=== PATIENT | female | born 1985 | race Caucasian/White ===

== ENCOUNTER 2019-05-21 13:46 | Outpatient (CLI) | payer OTHER, SELFPAY ==
--- NOTE | 2019-05-21 13:55 | US_ITS ---
WS: [id number] ULTRASOUND RENAL TECHNIQUE: Ultrasound examination of both kidneys. CLINICAL INFORMATION: BICORNATE UTERUS COMPARISON: None. FINDINGS: RIGHT: Right kidney is normal in size and appearance. Echogenicity: Normal. Cortical thickness: 1.5 cm; Normal. Hydronephrosis: None. Perinephric fluid: None. Right kidney measures: 10.2 cm x 4.3 cm x 4.4 cm. LEFT: Left kidney is normal in size and appearance. Echogenicity: Normal. Cortical thickness: 1.8 cm; Normal. Hydronephrosis: None. Perinephric fluid: None. Left kidney measures: 9.0 cm x 4.8 cm x 5.8 cm. Normal visualized aorta. Normal bladder. Normal renal ultrasound NOTE: Report was unsigned for reason: Ordering provider was edited. Original Signature date and time was: 05/21/19 1534 MTD US/US renal BI* [id number] IMPRESSION:
--- NOTE | 2019-05-21 15:14 | MR_ITS ---
WS: [id number] MRI PELVIS with and without CONTRAST. COMPARISON: None Multiplanar, multisequence imaging is performed with and without contrast. Sagittal and axial T1 fat sat sequences post-ProHance 13 cc IV. History: Bicornuate uterus. Infertility. Blocked RIGHT fallopian tube. 2 endometrial cavities are identified by a septum which is in the midline. The overall fund al contour is nearly flat with mild concavity less than 1 cm in depth. Intercornual distance of 3.5 c m. The angle between the endometrial cavities is approximately 75 degrees. The septum and proximal to the external cervical os. RIGHT endometrial cavity measures 1.4 cm and the LEFT 1.2 cm. No soft tissue masses or evidence for a denomyosis. Hydrosalpinx is not identified. Uterus is slightly retroverted. Multiple bilateral ovarian follicles. Largest follicle is 9.7 mm involving the LEFT ovary. There is n o free fluid. No enhancing soft tissue masses. MR/MR pelvis wo/w con [id number] IMPRESSION: 1. Partial septate uterus. Uterine fundal contour suggests this is a septate u terus and not bicornuate uterus. 2. Numerous small bilateral ovarian follicles. Largest measures 9.7 mm on the LEFT. 3. No free fluid. 4. No enhancing mass.
== END 2019-05-21 13:47 | disposition home or self-care (01) ==
LOC: RAD 13:51
PROVIDERS: PCP Internal Medicine Medical Oncology; Visit Provider Obstetrics & Gynecology Gynecology
DX: Q51.3 Bicornate uterus (principal)
CPT/HCPCS: 72197; 76770; A9579

== ENCOUNTER 2019-06-12 09:52 | Outpatient (CLI) | payer OTHER, SELFPAY | END 2019-06-12 09:53 | disposition home or self-care (01) | LOC: LAB 09:53 | PROVIDERS: Visit Provider Physician Assistant | DX: Z34.90 Encounter for supervision of normal pregnancy, unspecified, unspecified trimester (principal) | CPT/HCPCS: 36415; 84702 ==

== ENCOUNTER 2019-06-14 07:45 | Outpatient (CLI) | payer OTHER, SELFPAY | END 2019-06-14 07:46 | disposition home or self-care (01) | LOC: LAB 07:47 | PROVIDERS: Visit Provider Physician Assistant | DX: Z32.00 Encounter for pregnancy test, result unknown (principal) | CPT/HCPCS: 84702 ==

== ENCOUNTER 2019-07-03 10:58 | Outpatient (CLI) | payer OTHER, SELFPAY ==
--- NOTE | 2019-07-03 11:03 | US_ITS ---
WS: [id number] US OB transvaginal [id number] REASON FOR EXAM: DATING/EARLY FINDINGS: [place]-rump length of the fetus measures 0.89 cm equaling 6 weeks 6 days gestation. The otic sac measures 0.23 cm Right ovary measured 2.95 x 1.91 x 1.49 cm. The left ovary measures 3.73 x 2.31 x 1.94 cm. heart rate is 1 53 bpm. US/US OB transvaginal [id number] IMPRESSION: Interuterine at 6 weeks 6 days gestation. The fetus shows good motion and good heart tone.
== END 2019-07-03 10:59 | disposition home or self-care (01) ==
PROVIDERS: Visit Provider Nurse Practitioner Women's Health
DX: Z32.01 Encounter for pregnancy test, result positive (principal)
CPT/HCPCS: 76817

== ENCOUNTER → 2019-07-21 11:14 | Outpatient (BNVA) | payer OTHER, SELFPAY | PROVIDERS: Visit Provider Nurse Practitioner Women's Health | DX: Z01.89 Encounter for other specified special examinations (principal) | CPT/HCPCS: 84315 ==

== ENCOUNTER → 2019-07-28 10:01 | Outpatient (BNVA) | payer OTHER, SELFPAY | PROVIDERS: Visit Provider Obstetrics & Gynecology | DX: Z34.01 Encounter for supervision of normal first pregnancy, first trimester (principal) | CPT/HCPCS: 80053; 80306; 84315; 85027; 86592; 86762; 86803; 86850; 86900; 87340; 87806 ==

== ENCOUNTER → 2019-08-12 08:08 | Outpatient (BNVA) | payer OTHER, SELFPAY | PROVIDERS: Visit Provider Obstetrics & Gynecology | DX: O09.91 Supervision of high risk pregnancy, unspecified, first trimester (principal) | CPT/HCPCS: 84315; 87491; 87591 ==

== ENCOUNTER → 2019-08-31 09:18 | Outpatient (BNVA) | payer OTHER, SELFPAY | PROVIDERS: Visit Provider Obstetrics & Gynecology | DX: Z34.02 Encounter for supervision of normal first pregnancy, second trimester (principal); Z3A.15 15 weeks gestation of pregnancy | CPT/HCPCS: 76815 ==

== ENCOUNTER → 2019-12-01 09:34 | Outpatient (BNVA) | payer OTHER, SELFPAY | PROVIDERS: Visit Provider Obstetrics & Gynecology | DX: O09.899 Supervision of other high risk pregnancies, unspecified trimester (principal) | CPT/HCPCS: 82950; 84315; 85027 ==

== ENCOUNTER → 2019-12-07 09:00 | Outpatient (BNVA) | payer OTHER, SELFPAY | PROVIDERS: Visit Provider Obstetrics & Gynecology | DX: R73.09 Other abnormal glucose (principal) | CPT/HCPCS: 82951; 82952 ==

== ENCOUNTER → 2020-01-26 09:30 | Outpatient (BNVA) | payer OTHER, SELFPAY | PROVIDERS: Visit Provider Obstetrics & Gynecology | DX: O09.899 Supervision of other high risk pregnancies, unspecified trimester (principal); Z3A.00 Weeks of gestation of pregnancy not specified | CPT/HCPCS: 84315; 87081 ==

== ENCOUNTER → 2020-01-28 13:05 | Outpatient (BNVA) | payer OTHER, SELFPAY | PROVIDERS: Visit Provider Internal Medicine | DX: Z11.59 Encounter for screening for other viral diseases (principal) | CPT/HCPCS: 87635 ==

== ENCOUNTER 2020-02-02 05:30 | Outpatient (CLI) | payer OTHER, SELFPAY ==
[2020-02-02] VITALS (37 sets, daily range): BP systolic 96–139; BP diastolic 50–85; PULSE 67–105; O2SAT 97–100; BMI 26.8
[2020-02-02 06:11] LABS: Basophils % 0.4 %; Eosinophils % 0.4 %; Hematocrit 36.1 % (37.0-47.0); Hemoglobin 11.7 g/dL (11.5-15.3); Lymphocytes % 19.1 %; Mean Corpuscular HGB Conc 32.4 g/dL (30.0-36.0); Mean Corpuscular Hemoglobin 29.8 pg (28.0-34.0); Mean Corpuscular Volume 91.9 fL (81-99); Mean Platelet Volume 13.5 fL (7.4-10.4); Monocytes # 1.2 10^3/uL (0.2-0.9); Monocytes % 11.7 %; Nucleated Red Blood Cells % 0 %; Platelet Count 156 10^3/cmm (130-400); Red Blood Count 3.93 10^6/uL (4.1-5.3); Red Cell Distribution Width 13.1 % (12.1-15.1); White Blood Count 10.3 10^3/uL (4.0-10.0)
[2020-02-02] MEDS: terbutaline 1 mg/mL INJ 0.25 MG SUBCUT (07:03)
--- NOTE | 2020-02-02 07:09 | W.PM.OPSUD ---
Surgery/Procedure H&P Update DATE OF PROCEDURE: February 02, 2020 DATE H&P PERFORMED: 01/26/20 H&P UPDATE INFORMATION: I have reviewed H&P completed within last 30 days, I have examined patient prior to procedure, No changes to prior documentation and H&P is in [facility] EMR on date indicated PREOP DIAGNOSIS: Breech presentation PLANNED PROCEDURE: ECV possible CD
--- NOTE | 2020-02-02 07:40 | PM.ACPR ---
Procedure/Consent Procedure Narrative: OPERATIVE REPORT Date of procedure: 02/02/2020 Date of dictation: 02/02/2020 Preprocedure diagnosis: Breech presentation desiring version Post procedure diagnosis/findings: Breech in maryam presentation-unsuccessful version Procedure done: Attempted external cephalic version Anesthesia: None Medications: Terbutaline subcutaneously x1 Complications: None PROCEDURE: Patient is a 34-year-old 1 para 0 at 37 weeks and 2 days who presented to labor and delivery for scheduled external cephalic version. Upon admission ultrasound was performed and baby was noted to be in breech presentation. NST was performed and was reactive. CBC done showed normal hemoglobin and she was given a single dose of terbutaline after informed consent was obtained. Vital signs remained stable. Patient was counseled again about the procedure and desires to proceed with this. Ultrasound done showed the head in the left upper quadrant at the breech to the right of the pubic symphysis. The head was grasped followed by the breech was grasped and attempt was made to try to move the baby in a clockwise direction. Very little movement was noted. Heart rate was monitored throughout and no deceleration was noted. 3 attempts were made however it was unsuccessful. This was thought to be secondary to his the septum and very little movement was noted and decision was made to abandon the procedure. Patient tolerated the procedure well. Patient to be monitored on labor and delivery for period of 2 hours. Patient counseled about the risks including abruption, premature rupture of membranes. Patient to follow-up as scheduled tomorrow for biophysical profile. FOLLOW UP: Follow-up tomorrow in the clinic MEDICATION ON DISCHARGE: Continue other home medication DISPOSITION: Home in a stable condition
== END 2020-02-02 09:30 | disposition home or self-care (01) ==
LOC: OPOB 05:40 → OBGYN 07:43
PROVIDERS: Visit Provider Obstetrics & Gynecology
DX: O32.1XX0 Maternal care for breech presentation, not applicable or unspecified (principal); Z3A.00 Weeks of gestation of pregnancy not specified
CPT/HCPCS: 12345; 59025; 59412; 85025; 96372; 99211; J3105

== ENCOUNTER → 2020-02-09 18:20 | Outpatient (BNVA) | payer OTHER, SELFPAY | PROVIDERS: Visit Provider Obstetrics & Gynecology | DX: O09.899 Supervision of other high risk pregnancies, unspecified trimester (principal) | CPT/HCPCS: 87635 ==

== ENCOUNTER 2020-02-12 20:10 | Outpatient (CLI) | payer OTHER, SELFPAY ==
[2020-02-12] VITALS (10 sets, daily range): BP systolic 128–144; BP diastolic 72–80; PULSE 62–69; RESP 18; TEMP 37–37.1; O2SAT 97–98
--- NOTE | 2020-02-12 22:00 | P.PCN_ITS ---
Procedure/Consent Procedure Narrative: NONSTRESS TEST: Place of test: [facility] [place] Indication: 1 para 0 at 38 weeks and 5 days, decreased movement Date and time of test: 02/12/2020, 9 PM Baseline: 135 Variability: Moderate Accelerations: Present Decelerations: None Tocometry: Irregular contractions INTERPRETATION: NST reactive, continue kick counts
== END 2020-02-12 21:14 | disposition home or self-care (01) ==
LOC: OPOB 20:21 → OBGYN 20:22
PROVIDERS: Visit Provider Obstetrics & Gynecology
DX: O36.8190 Decreased fetal movements, unspecified trimester, not applicable or unspecified (principal); Z3A.00 Weeks of gestation of pregnancy not specified
CPT/HCPCS: 12345; 59025; 99211

== ENCOUNTER 2020-02-15 05:28 | Inpatient (IN) | payer OTHER, SELFPAY ==
[2020-02-15] VITALS (17 sets, daily range): BP systolic 113–128; BP diastolic 69–80; PULSE 63–76; RESP 16–18; TEMP 36.3–36.7; O2SAT 96–99; BMI 27.2
[2020-02-15] MEDS: lactated ringers 1,000 ML 999 ML (06:09)
[2020-02-15] MEDS: metoclopramide 5 mg/mL SDV 2 mL 10 MG IVP (06:28)
[2020-02-15] MEDS: famotidine 20 mg/2 mL INJ IVP (06:28)
[2020-02-15] MEDS: citric acid-sodium citrate 30 mL UDC PO (06:28)
--- NOTE | 2020-02-15 08:17 | PM.OP ---
Operative Report Date of procedure: February 15, 2020 OPERATIVE REPORT Date of surgery:02/15/2020 Date of dictation: 02/15/2020 Preoperative diagnosis: 34-year-old 1 para 0 at 39 weeks and 1 day, breech presentation, septate uterus Postoperative diagnosis/findings: Same, baby girl, aspirin Apgars 8/8 weighing 6 pounds 15 ounces, 19-1/2 inches long, clear fluid, normal tubes and ovaries bilaterally Procedure done: Primary low transverse delivery via Pfannenstiel incision. Specimens removed/disposition of specimens: Placenta and cord sent to pathology Surgeon: Dr. Carlota Khan chiropractic assistant: Jaycee Mayfield Anesthesia: Spinal anesthesia Estimated blood loss: 800 ml Intravenous fluids: Thousand mL of LR Urine output: 50 mL of clear urine at the end of procedure Medications: As per anesthesia records Complications: None, she was left to recovery in a stable condition. PROCEDURE: After consent was obtained, patient was taken to the operating room where spinal anesthesia was placed without difficulty. She was placed supine on the table with a left lateral wedge. Ayala catheter and SCDs were placed. The abdomen was shaved and then prepped with duo prep. She was draped in a sterile fashion. After checking adequacy of anesthesia, a Pfannenstiel incision was made 2 cm above the pubic symphysis. The incision was carried down to the fascia using the Bovie. The fascia was nicked in the midline and the fascial incision was extended laterally using curved Mayos. The inferior aspect of the fascia was grasped with rex clamps and dissected off from the underlying rectus muscle. This was repeated again superiorly without any difficulty. The rectus muscle was . A vasile was made in the peritoneum and the peritoneal incision was carried inferiorly taking care to proceed in layers so as to avoid the bladder. The peritoneal incision was extended superiorly as well. No adhesions were noted from the uterus to the anterior abdominal wall. The uterus was noted to be rotated to the left. The bladder peritoneum was grasped with smooth forceps a bladder flap was created. the bladder blade was replaced thus protecting the bladder. A LOW TRANSVERSE UTERINE INCISION was made with a scalpel till the amniotic membrane was reached. The uterine incision was then extended laterally using bandage scissors. Amniotomy was done with Allis clamps and clear amniotic fluid was drained. The presenting breech of the baby was brought up to the level of the incision and delivered without any difficulty. The body and legs were delivered until legs were flexed at the knee. The body was wrapped in a towel and delivered up to the level of the scalpula. Arms were delivered by sweeping arms across the anterior of body. The head delivered without any difficulty following this. The nose and mouth were suctioned, the umbilical cord was clamped and cut and the baby was handed off to the waiting apartment house manager, Dr. Cruz. The placenta was delivered spontaneously with fundal massage. It was noted to be intact and was discarded. The interior of the uterus was cleaned of all clot and debris and was noted to be pineda well. The uterus was exteriorized. The shape of the uterus was noted to be more similar to a bicornuate uterus with 2 horns and a deep indent between the horns. Manual exploration of the uterine cavity showed possible septum about 2 cm deep. The uterine incision was closed with 0 Vicryl in a running interlocking manner. Good hemostasis and reapproximation was obtained. A second imbricating layer was done without any difficulty. The abdomen was irrigated and the gutters were cleaned of clot and debris. Normal tubes and ovaries were noted bilaterally. The uterus was placed back into the abdomen and uterine incision was noted to be hemostatic. The peritoneum was closed with a 2-0 plain in a continuous stitch. The rectus muscle was reapproximated with 2-0 plain suture in a mattress stitch. Good hemostasis was noted in the rectus muscle layer. The fascia was inspected for any defects and none were found and the fascia was closed with 0 Vicryl in continuous stitch. The subcutaneous plane was then irrigated and hemostasis was obtained using the Bovie. The subcutaneous plane was then reapproximated using 2-0 plain suture in a continuous manner. The skin was then closed with 4-0 Monocryl in a subcuticular fashion. Good reapproximation and hemostasis was noted. Steri-Strips were applied. The incision was dressed with Telfa ,ABD and paper tape. The fundus was noted to be firm at the end of the procedure and excess blood was expressed from the vagina. The patient was left to recover in a stable condition. Pre-op Diagnosis: Breech presentation
--- NOTE | 2020-02-15 09:03 | PC.NURSE ---
Patient moved up via bed from PACU, no complaints of nausea, lightheadedness or dizziness.
[2020-02-15] MEDS: dextrose 5%-lactated ringers 1,000 ML 125 ML IV (11:22)
[2020-02-15] MEDS: ondansetron 2 mg/ML SDV 2 mL 4 MG IVP (14:01)
--- NOTE | 2020-02-15 14:50 | PC.NURSE ---
1430 PT UP AND WALKED IN HALLWAY DOWN TO OR DOORS AND BACK AND DID WELL. PT BACK INTO BED, DID GREAT.
[2020-02-15 19:55] LABS: Hematocrit 32.4 % (37.0-47.0); Hemoglobin 10.5 g/dL (11.5-15.3); Mean Corpuscular HGB Conc 32.4 g/dL (30.0-36.0); Mean Corpuscular Hemoglobin 29.7 pg (28.0-34.0); Mean Corpuscular Volume 91.8 fL (81-99); Mean Platelet Volume 13.5 fL (7.4-10.4); Platelet Count 145 10^3/cmm (130-400); Red Blood Count 3.53 10^6/uL (4.1-5.3); White Blood Count 19.4 10^3/uL (4.0-10.0)
--- NOTE | 2020-02-15 23:40 | PC.NURSE ---
Assisted with latching baby onto breast.
[2020-02-16] MEDS: acetaminophen 325 mg Tablet 650 MG PO (04:12)
[2020-02-16] MEDS: docusate sodium 100 mg Capsule PO ×2 (09:01→17:16)
[2020-02-16] MEDS: ibuprofen 800 mg tablet PO ×3 (09:01→22:11)
[2020-02-16] MEDS: prenatal vitamin Capsule 1 CAP PO (09:01)
[2020-02-16] MEDS: HYDROcodone-acetaminophen 5-325 mg Tablet PO ×3 (09:43→22:13)
[2020-02-16 09:44] VITALS: BP 104/66; PULSE 72; RESP 16; TEMP 36.6; O2SAT 96
--- NOTE | 2020-02-16 11:16 | ANE.PACU2 ---
Inpatient post-anesthesia follow up: Airway intact: Yes Vital signs: Temperature 97.8 F Pulse Rate 72 Respiratory Rate 16 Blood Pressure 104/66 Pulse Oximetry 96 Oxygen Delivery Me thod Room Air Oxygen Flow Rate Fraction of Inspir ed Oxygen Hydration adequate: Yes Nausea and vomiting: No Pain level: 2 Mental status: Baseline Additional Comments: No signs of infection at spinal site, no numbess/weakness in legs, urinating with out plaza, no headaches
--- NOTE | 2020-02-16 15:11 | PM.PN ---
Subjective Subjective: Interval history: SUBJECTIVE: Ms. Garza is doing okay today. She denies any heavy vaginal bleeding and states her pain is well controlled. She has not taken any narcotics as she feels like it causes a lot of nausea and she does not want to throw up. She is been using the incentive spirometer consistently. She has voided since having the catheter removed and feels much better without this. She is passed a little gas this morning and has been burping. Has tolerated clear liquid diet without any nausea or vomiting. She denies fever, chills, shortness of breath and chest pain. She is breast-feeding without any difficulty. Did not get a whole lot of sleep last night taking care of the baby. OBJECTIVE/PHYSICAL EXAM: Gen.: No acute distress Heart: S1-S2 heard, regular rate and rhythm Lungs: Clear to auscultation bilaterally Abdomen: Soft, fundus firm below umbilicus, tenderness around incision. Incision: Clean dry and intact with Steri-Strips. Legs: No calf tenderness, trace bilateral pitting pedal edema. ASSESSMENT AND PLAN: 34-year-old 1 para 1 status post primary delivery, postoperative day #1 -Continue routine postoperative care-encourage ambulation and p.o. pain medication -We will try half a tablet of 5/325 mg of [place] and see how she does with this. Discussed importance of keeping pain well under control -Continue incentive spirometer use and will discontinue IV -Hemoglobin stable vital signs stable -Anticipate discharge home tomorrow in the next 1 to 2 days as long as she continues to do well. Vitals/I&O/Wt Last Vital Signs Temp 97.8 F 02/16/20 09:44 Pulse 72 02/16/20 09:44 Resp 16 02/16/20 09:44 BP 104/66 02/16/20 09:44 Pulse Ox 96 02/16/20 09:44 02/16/20 02/16/20 02/16/20 06:59 14:59 22:59 Intake Total 30 / 2280 Output Total 2800 / 5300 1200 / 1200 Balance -2770 / -3020 -1200 / -1200 Weight last 48 hrs Weight 169 lb Physical Exam Urinary Catheter Management^: Ayala: Cath Placed During This Visit: yes, but has since been removed by the nurse Reason for Continuing Indwelling Catheter: Decision to DC Catheter Urinary Catheter Date of Insertion: 02/15/20 Urinary Catheter Time of Insertion: 06:45 Date Urinary Catheter Removed: 02/16/20 Time Urinary Catheter Discontinued: 06:10 Data : 02/15/20 19:35 Attestations Medical Necessity Statement*: Patient needs to stay for 1-2 more nights to recover from surgery Coding Level of Care Code Acute Medical Lab Tech Instructor for Alexey Frazier
[2020-02-16 16:00] VITALS: BP 118/67; PULSE 70; RESP 16; TEMP 36.7; O2SAT 97
[2020-02-17] MEDS: HYDROcodone-acetaminophen 5-325 mg Tablet PO ×2 (07:25→14:45)
[2020-02-17] MEDS: prenatal vitamin Capsule 1 CAP PO (09:04)
[2020-02-17] MEDS: ibuprofen 800 mg tablet PO ×2 (09:04→14:45)
[2020-02-17] MEDS: docusate sodium 100 mg Capsule PO (09:05)
--- NOTE | 2020-02-17 10:26 | PC.NURSE ---
Assessment not completed on this shift due to high acuity of pts. on OB floor.
--- NOTE | 2020-02-17 10:30 | PC.NURSE ---
02/17/20 @ 0659 Assessment not completed on this shift due to high acuity of pts. on the OB floor last night.
[2020-02-17 14:51] VITALS: BP 132/79; PULSE 77; RESP 18; TEMP 36.8; O2SAT 97
[2020-02-17 17:14] VITALS: BP 122/73; PULSE 72; RESP 18; TEMP 37; O2SAT 97
--- NOTE | 2020-02-17 17:20 | P.DS_ITS ---
Discharge Providers Date of Admission: 02/15/20 05:28 Date of Discharge: February 17, 2020 Attending Provider at Admission: Carlota Aguilar MD Attending Provider at Discharge: Carlota Aguilar MD Reason for Visit Reason for Visit: section Hospital Course Discharge Summary: Date of surgery:02/15/2020 Preoperative diagnosis: 34-year-old 1 para 0 at 39 weeks and 1 day, breech presentation, septate uterus Postoperative diagnosis/findings: Same, baby girl, [place], Apgars 8/8 weighing 6 pounds 15 ounces, 19-1/2 inches long, clear fluid, normal tubes and ovaries bilaterally Procedure done: Primary low transverse delivery via Pfannenstiel incision. Specimens removed/disposition of specimens: Placenta and cord -discarded HOSPITAL COURSE: She underwent an uncomplicated primary low transverse delivery for breech presentation on 02/15/2020-please refer to operative report for details. She did well on day 0 and was ambulating well, tolerating clear liquid diet. Pain was controlled with p.o. pain medication. She was breast- feeding without difficulty and bonding well with her daughter. Pain was well- controlled with by mouth pain medication. She denied nausea, vomiting, fever, chills, shortness of breath, leg pain. She had moderate vaginal bleeding. On day # 1 she continued to do well with stable vital signs and stable hemoglobin at 10.5. Ayala catheter was discontinued and she voided without any difficulty and passed flatus and was advanced to regular diet which she tolerated. She had no other questions or concerns. On day #2 she continued to do well and pain was well controlled. Incision appears clean dry and intact.. She was discharged home on day 2 in a stable condition, as she desired early discharge. Warning signs for endometritis, wound infection mastitis, DVT/PE were reviewed with her. Post delivery activity restrictions were also reviewed with her at all her questions were answered to her satisfaction. Plans on using pills for contraception which will be started . EXAM AT DISCHARGE: Gen.: No acute distress Heart: S1-S2 heard, regular rate and rhythm Lungs: Clear to auscultation bilaterally Abdomen: Soft, fundus firm below umbilicus, tenderness around incision. Incision: Clean dry and intact with Steri-Strips. Legs: No calf tenderness, trace bilateral pitting pedal edema. CONDITION AT DISCHARGE: Stable Physical Exam Urinary Catheter Management^: Ayala: Cath Placed During This Visit: yes, but has since been removed by the nurse Reason for Continuing Indwelling Catheter: Decision to DC Catheter Urinary Catheter Date of Insertion: 02/15/20 Urinary Catheter Time of Insertion: 06:45 Date Urinary Catheter Removed: 02/16/20 Time Urinary Catheter Discontinued: 06:10 Discharge Data Vitals: Last Vital Signs Temp 98.6 F 02/17/20 17:14 Pulse 72 02/17/20 17:14 Resp 18 02/17/20 17:14 BP 122/73 02/17/20 17:14 Pulse Ox 97 02/17/20 17:14 Discharge Plan Discharge Patient Disposition: Home Condition: Stable Prescriptions: New ibuprofen 800 mg tablet 800 mg PO Q8H Qty: 30 RF: 0 hydrocodone-acetaminophen 5-325 mg tablet 1 tab PO Q6H Qty: 25 RF: 0 docusate sodium 100 mg Capsule 100 mg PO BID PRN (Reason: constipation) Qty: 30 RF: 0 Continued prenat.vits,jeana,[id number] Tablet 1 tab PO DAILY RF: 0 Discharge Orders: Discharge Order (Routine); Ordered 02/17/20 Ordered By: Carlota Aguilar Referrals: Carlota Aguilar MD [Physician] - (2 and 6 week f/u) Patient Instructions: and the Working Mom (GEN), Expression, Collection and Storage of Breastmilk (GEN), How to Hold and Breastfeed Your Baby (GEN), and Nipple Soreness (GEN), Breast Fullness Versus Breast Engorgement (GEN), How to Increase Your Milk Supply (GEN), How to Tell if Your Baby is Getting Enough Breast Milk (GEN), and Your Diet (GEN), OB WHC, OB Discharge Report, OB Food/Drug Interaction Guide Activity Restrictions/Additional Instructions: Pelvic rest for 6 weeks, no heavy lifting for 6 weeks Discharge Date/Time: 02/17/20 18:00 Discharge Attestations Time Spent in Discharge Care*: greater than 30 min Quality Metrics Clinical Quality Measures During this hospital stay, did patient experience: None Coding Level of Care Code Acute Vp Digital Marketing Social Media And Crm for Alexey Frazier
== END 2020-02-17 18:00 | disposition home or self-care (01) | DRG 788 ==
PROVIDERS: Admitting Provider Obstetrics & Gynecology; Visit Provider Obstetrics & Gynecology
PROC: 10D00Z1 Extraction of Products of Conception, Low, Open Approach (ICD-10-PCS; CPT 59514; principal; 2020-02-15 06:30)
DX: O32.1XX0 Maternal care for breech presentation, not applicable or unspecified (principal); Z3A.39 39 weeks gestation of pregnancy; Z37.0 Single live birth; O34.03 Maternal care for unspecified congenital malformation of uterus, third trimester; Q51.28 Other and unspecified doubling of uterus
CPT/HCPCS: 12345; 36415; 51702; 59025; 59409; 85027; 86900; 96375; 98960; 99211; J0690; J1100; J1885; J2274; J2370; J2405; J2765; J3490; J7030

== ENCOUNTER → 2021-05-31 09:02 | Outpatient (BNVA) | payer OTHER, SELFPAY | PROVIDERS: Visit Provider Nurse Practitioner Women's Health | DX: N92.6 Irregular menstruation, unspecified (principal); Z32.02 Encounter for pregnancy test, result negative | CPT/HCPCS: 81025 ==

== ENCOUNTER → 2021-06-27 10:15 | Outpatient (BNVA) | payer OTHER, SELFPAY | PROVIDERS: Visit Provider Obstetrics & Gynecology | DX: O09.90 Supervision of high risk pregnancy, unspecified, unspecified trimester (principal); O34.219 Maternal care for unspecified type scar from previous cesarean delivery; Q51.9 Congenital malformation of uterus and cervix, unspecified | CPT/HCPCS: 80307; 84315; 85027; 86592; 86762; 86803; 86850; 86900; 87086; 87340 ==

== ENCOUNTER → 2021-07-11 09:27 | Outpatient (BNVA) | payer OTHER, SELFPAY | PROVIDERS: Visit Provider Obstetrics & Gynecology | DX: O09.90 Supervision of high risk pregnancy, unspecified, unspecified trimester (principal); O34.219 Maternal care for unspecified type scar from previous cesarean delivery; Q51.9 Congenital malformation of uterus and cervix, unspecified | CPT/HCPCS: 84315; 87491; 87591 ==

== ENCOUNTER → 2021-08-08 11:28 | Outpatient (BNVA) | payer OTHER, SELFPAY | PROVIDERS: Visit Provider Nurse Practitioner Women's Health | DX: O09.90 Supervision of high risk pregnancy, unspecified, unspecified trimester (principal); Z3A.00 Weeks of gestation of pregnancy not specified | CPT/HCPCS: 82105; 84315 ==

== ENCOUNTER 2021-10-30 15:06 | Outpatient (CLI) | payer OTHER, SELFPAY ==
--- NOTE | 2021-10-30 15:00 | US_ITS ---
WS: [id number] ULTRASOUND OB LIMITED TECHNIQUE: Limited ultrasound examination of the fetus. 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 COMPARISON: September 04, 2021 FINDINGS: Cervix is closed measuring 3.1 CM. Single interuterine gestation. presentation is breech Placental location is anterior and fundal. Placenta grade: 0. heart rate 136 BPM. Anatomy: BDP: 7.3 cm = 29w2d HC: 26.6 cm = 29w0d AC: 24.8 cm = 29w0d FEMUR LENGTH: 5.5 cm = 29w0d Estimated weight: 1328 g, 2 lbs. 15 oz. EGA by ultrasound: 29w1d MALACHI by ultrasound: 01/14/2022 US/US OB limited [id number] IMPRESSION: 1. Single intrauterine gestation with BREECH presentation. 2. Cervix is closed measuring 3.1 CM. 3. Placenta is anterior fundal. 4. Gestational age 29 weeks 1 day with estimated delivery January 14, 2022 5. Normal growth parameters.
== END 2021-10-30 15:07 | disposition home or self-care (01) ==
LOC: RAD 15:08
PROVIDERS: Visit Provider Obstetrics & Gynecology
DX: Q51.9 Congenital malformation of uterus and cervix, unspecified (principal)
CPT/HCPCS: 76815

== ENCOUNTER → 2021-10-31 11:32 | Outpatient (BNVA) | payer OTHER, SELFPAY | PROVIDERS: Visit Provider Obstetrics & Gynecology | DX: O09.90 Supervision of high risk pregnancy, unspecified, unspecified trimester (principal); Z3A.00 Weeks of gestation of pregnancy not specified | CPT/HCPCS: 82950; 84315; 85027 ==

== ENCOUNTER → 2021-12-04 15:54 | Outpatient (BNVA) | payer OTHER, SELFPAY | PROVIDERS: Visit Provider Obstetrics & Gynecology | DX: Z36.87 Encounter for antenatal screening for uncertain dates (principal) | CPT/HCPCS: 76816 ==

== ENCOUNTER → 2021-12-25 08:50 | Outpatient (BNVA) | payer OTHER, SELFPAY | PROVIDERS: Visit Provider Obstetrics & Gynecology | DX: Z36.87 Encounter for antenatal screening for uncertain dates (principal) | CPT/HCPCS: 76816; 84315; 87081 ==

== ENCOUNTER 2022-01-16 05:11 | Inpatient (IN) | payer OTHER, SELFPAY ==
--- NOTE | 2022-01-11 09:59 | P.ANESASSM_ITS ---
Pre-Anesthetic Assessment Height/Weight: Height 1.68 m Preop Diagnosis: Breech presentation Operation Date: 01/16/22 07:00 Proposed Procedures p Section Repeat(Not Applicable) - Mynor Hannah MD Familial anesthetic complications: Patient reported very uncomfortable pruritus with last which was attributed to intrathecal morphine Was Beta Joseph taken within 24 hours: N/A Was Clonidine taken within 24 hours: N/A Social No alcohol and No tobacco Exam alert, oriented x 3, clear to auscultation bilaterally and regular rate & rhythm Airway Submandibular: within normal limits Cervical ROM: within normal limits Mallampati: Class I Dentition: full History/ROS No significant complaints Pulmonary None reported CV/HEM None reported Hx of uterine septum Hepatic None reported GI None reported Metabolic None reported Musc/skel None reported Neuropsych None reported Anesthetic Plan ASA status: 2 Anesthesia: Anesthesia Evaluation, General and Regional (specify below) (Spinal) Other: We discussed risk and benefits of spinal anesthesia including infection, paralysis/catastrophic nerve injury, back bruising/pain, PDPH, conversion to general in case of spinal failure, intraoperative and PONV, life threatening allergic reaction, post operative ICU admission requiring prolonged intubation, stroke, heart attack. Patient consents to spinal anesthesia. Patient had severe pruritus with previous spinal (attributed to intrathecal mor phine). At that time she declined IV diphenhydramine. We discussed options including LA only, LA + fentanyl, LA + fentanyl + morphine, LA + fentanyl+ hydromorphone. We discussed options for treating pruritus including diphenhydramine and nalbuphine. We also discussed intrathecal clonidine. We discussed lack of availability of IV clonidine and nalbuphine. We discussed that I was not aware that hydromorphone was superior to morphine for either analgesia or reducing the side effect profile of pruritus. The patient plans to consider her available options and make decisions on the day of surgery regarding intrathecal opioid use. Risk of > 500 ml blood loss (7ml/kg in children): No Other Pertinent Information A review of one article entitled Intrathecal Morphine?versus?Intrathecal Hydromorphone for Analgesia after Delivery:?A Randomized Clinical Trial published in the October 2019 issue of Anesthesiology (see link below) suggest that hydromorphone is not superior for either pain control or reducing pruritus in surgery stating the follwing. Although nausea and pruritus are two of the most common side effects of intrathecal opioids, sedation and respiratory depression are the most concerning. In this study, sedation scores did not differ between the two groups, and there were no cases of respiratory depression in either group. Recently, the Society for Obstetric Anesthesia and Perinatology ([place], [place]) published a consensus statement on monitoring and treatment for neuraxial opioid-induced respiratory depression.22??This statement states that ?hydromorphone has not been studied as thoroughly and lacks the track record of safety that neuraxial morphine has, and therefore if available, intrathecal morphine is the preferred single-shot intrathecal opioid in this setting. and In conclusion, this study demonstrates that the use of 75 ?g of intrathecal hydromorphone for delivery produces postoperative analgesia of similar effectiveness at 24?h as that produced by 150 ?g of intrathecal morphine when used as part of a multimodal analgesic regimen. Additionally, the side-effect profile between these medications is similar. Anesthesia providers should feel comfortable administering either intrathecal hydromorphone or intrathecal morphine as part of a multimodal analgesic regimen to care for patients undergoing delivery. 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 Details of septum is unknown evaluation of the uterine cavity was done prior to her getting in June 2019. No pertinent past medical history Denies diabetes, asthma, hypertension, seizures, DVT/PE PMD: none Surgical History H/O wisdom tooth extraction (~2014) IV sedation-no complications S/P section 02/15/2020---Primary low transverse delivery via Pfannenstiel incision. Performed by Dr. Khan at [facility] in [place], [place] for breech presentation. 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 Family History Mother Hypertension Denies family history of Colon cancer Ovarian cancer Diabetes Hyperlipidemia Breast cancer Uterine cancer Thyroid condition Stroke Data Anesthesia Cardiac Studies: No Data to Display
[2022-01-16] VITALS (47 sets, daily range): BP systolic 94–131; BP diastolic 50–80; PULSE 58–91; RESP 17–18; TEMP 36.5–36.7; O2SAT 93–100; BMI 32.3
[2022-01-16] MEDS: lactated ringers 1,000 ML 999 ML IV (06:10)
[2022-01-16 06:11] LABS: Basophils % 0.3 %; Eosinophils # 0.1 10^3/uL (0.0-0.8); Eosinophils % 0.5 %; Hematocrit 36.8 % (37.0-47.0); Hemoglobin 12.1 g/dL (11.5-15.3); Lymphocytes # 1.9 10^3/uL (0.8-4.8); Lymphocytes % 17.5 %; Mean Corpuscular HGB Conc 32.9 g/dL (30.0-36.0); Mean Corpuscular Hemoglobin 30.9 pg (28.0-34.0); Mean Corpuscular Volume 94.1 fl (81-99); Mean Platelet Volume 12.5 fL (7.4-10.4); Monocytes # 1.1 10^3/uL (0.2-0.9); Monocytes % 10.7 %; Neutrophils # 7.46 10^3/uL (1.8-7.7); Neutrophils % 70.4 %; Nucleated Red Blood Cells % 0 %; Platelet Count 157 10^3/cmm (130-400); Red Blood Count 3.91 10^6/uL (4.1-5.3); Red Cell Distribution Width 13.6 % (12.1-15.1); White Blood Count 10.6 10^3/uL (4.0-10.0)
--- NOTE | 2022-01-16 06:45 | P.HP_ITS ---
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 Her due date was established with an 8-week ultrasound. She has had an unremarkable other than her baby has been breech. There have been no other concerns. She received the majority of her care from from Dr. Khan. I took over care of the patient over the last several weeks. Present Details : 2 Para: 1 Review of Systems General: Reports: 10 or more systems reviewed and unremarkable except in HPI and below Const: Reports: fatigue; Denies: fever(s) Eyes: Denies: change in vision Card: Denies: chest pain Musc: Reports: back pain Roe/Lymph: Denies: easy bruising Medications/Allergies Home Medications Medication Instructions Recorded Confirmed Last Taken Type prenat.vits,jeana,nve-snvx-qsojn 1 tab PO DAILY 05/31/21 01/16/22 1 Week Ago History ~01/09/22 breast pump (Baby Breast #1 ea 12/11/21 12/25/21 Unknown Rx Pump) Allergies Allergy/AdvReac Type Severity Reaction Status Date / Time No Known Allergies Allergy Verified 01/16/22 05:53 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 Performed by Dr. Khan at [facility] in [place], [place]. for breech presentation. 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 Family History Mother Hypertension Denies family history of Colon cancer Ovarian cancer Diabetes Hyperlipidemia Breast cancer Uterine cancer Thyroid condition Stroke Other Female Reproductive History: Hx Age of Menarche: 14 History History History 2 Term 1 0 Miscarriages/Ectopic 0 Living Children 1 Care MALACHI Calculator Estimated Delivery Date Method Current WG Current Estimate 01/20/22 LMP (Certain) 39w 3d Other Estimates 01/15/22 Ultrasound #1 40w 1d Expected Delivery Route/Plan Undecided Specific Issues/Plans * delivery x1- candidate-desires trial of labor * Bicornuate uterus-not a candidate for version * Advanced maternal age-36 at time of delivery-low risk NIPT-no further inter vention * Breech wimpzcfwnzml-qqhynd-pj at 32 weeks Vitals/I&O/Wt Last Vital Signs Temp 97.7 F 01/16/22 05:24 Pulse 77 01/16/22 06:43 Pulse Ox 100 01/16/22 06:43 Weight last 48 hrs Weight 200 lb Weight 200 lb Physical Exam Const: COMMON NORMALS: patient oriented x3 and alert HENMT: COMMON NORMALS: moist oral mucous membranes HEAD & SCALP: normal to inspection Chest: COMMONS NORMALS: normal inspection of the chest Resp: COMMON NORMALS: clear to auscultation bilaterally AUSCULTATION: clear to auscultation bilaterally Cardio: COMMON NORMALS: regular rate and regular rhythm RATE: regular rate RHYTHM: regular rhythm GI: INSPECTION: Yes normal to inspection and Yes other (Gravid) Extremity: COMMON NORMALS: normal to inspection GENERAL: Yes edema (Trace) Neuro: COMMON NORMALS: patient oriented x3, moves all extremities and no sensory deficits noted SENSORIUM/ORIENTATION: Yes alert Psych: COMMON NORMALS: mental status grossly normal Skin: COMMON NORMALS: no rashes or lesions noted GENERAL SKIN EXAM: no rashes or lesions noted Data : 01/16/22 05:45 A&P Assessment and plan (1) Breech presentation: We will proceed this morning with a section. We have discussed the risk of bleeding, infection, and damage intra-abdominal organs. Patient has no further questions and wishes to proceed. Dr. Cruz will be available for delivery of . He has been notified about the arrhythmia. 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
[2022-01-16] MEDS: famotidine 20 mg/2 mL INJ IVP (06:57)
[2022-01-16] MEDS: citric acid-sodium citrate 30 mL UDC PO (06:58)
[2022-01-16] MEDS: metoclopramide 5 mg/mL SDV 2 mL 10 MG IVP (06:58)
[2022-01-16] MEDS: ceFAZolin 2,000 MG in sodium chloride 0.9% (plus) 50 ML 100 MG IV (07:00)
--- NOTE | 2022-01-16 07:00 | ANES.PREANE2 ---
Pre-Anesthetic Assessment Height/Weight: Height 1.68 m Weight 90.718 kg Temp Pulse Pulse Ox 97.7 F 83 100 01/16/22 05:24 01/16/22 06:53 01/16/22 06:53 Preop Diagnosis: Breech presentation Operation Date: 01/16/22 07:00 Proposed Procedures p Section Repeat(Not Applicable) - Mynor Hannah MD Familial anesthetic complications: none Was Beta Joseph taken within 24 hours: N/A Was Clonidine taken within 24 hours: N/A Last intake: 1700. sip of water this AM Social No alcohol and No tobacco Exam alert and oriented x 3 Airway Submandibular: within normal limits Cervical ROM: within normal limits Mallampati: Class II Dentition: full History/ROS No significant history except as noted Pulmonary None reported CV/HEM None reported None reported Hepatic None reported GI Gastroesophageal Reflux Disease (gestational only) Metabolic None reported Musc/skel None reported Neuropsych None reported Anesthetic Plan ASA status: 2 Anesthesia: Anesthesia Evaluation and Regional (specify below) (SAB) Risk of > 500 ml blood loss (7ml/kg in children): No Medications/Allergies Home Medications Medication Instructions Recorded Confirmed Last Taken Type prenat.vits,jeana,bjp-basr-lschn 1 tab PO DAILY 05/31/21 01/16/22 1 Week Ago History ~01/09/22 breast pump (Baby Breast #1 ea 12/11/21 12/25/21 Unknown Rx Pump) Allergies Allergy/AdvReac Type Severity Reaction Status Date / Time No Known Allergies Allergy Verified 01/16/22 05:53 [facility] Anesthesia Medical History (Updated 01/16/22 @ 06:51 by Mynor Hannah MD) Congenital uterine anomaly No pertinent past medical history Denies diabetes, asthma, hypertension, seizures, DVT/PE PMD: none Surgical History H/O wisdom tooth extraction (~2014) IV sedation-no complications S/P section 02/15/2020---Primary low transverse delivery via Pfannenstiel incision. Performed by Dr. Khan at [facility] in [facility] for breech presentation. 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 Family History Mother Hypertension Denies family history of Colon cancer Ovarian cancer Diabetes Hyperlipidemia Breast cancer Uterine cancer Thyroid condition Stroke Female Reproductive History : 2 Data Anesthesia : 01/16/22 05:45 Short CBC 01/16/22 Range/Units 05:45 WBC 10.6 H (4.0-10.0) 10^3/uL Hgb 12.1 (11.5-15.3) g/dL Hct 36.8 L (37.0-47.0) % MCV 94.1 (81-99) fl Plt Count 157 (130-400) 10^3/cmm Neut % (Auto) 70.4 % Neut # (Auto) 7.46 (1.8-7.7) 10^3/uL Cardiac Studies: No Data to Display
--- NOTE | 2022-01-16 08:14 | PM.OP ---
Operative Report Date of procedure: January 16, 2022 Pre-op diagnosis: Preop Diagnosis Breech presentation History of section Post-op diagnosis: Same Procedure done: Lower transverse section Specimens removed/disposition: 1. Male infant with a weight of and Apgars of 8 and 8 and a weight of 7 pounds 9 ounces 2. Placenta with three-vessel cord delivered intact Surgeon: Mynor Hannah Estimated blood loss (mL): 400 Procedure: The patient was brought back to the operating room where she was prepped and draped in usual sterile fashion. Anesthesia was found to be adequate. A lower transverse skin incision was then made with a #10 blade. I then dissected down to the underlying subcutaneous tissue until arriving at the prerectal fascia. The fascia was then nicked with the scalpel bilaterally. The fascial incisions were then carried laterally with Ann scissors. Attention was then turned to the superior aspect of the incision which was grasped with kochers and tented up away from the underlying rectus abdominis muscles. The muscles were then dissected away from the fascia manually, and later with Ann scissors. Attention was then turned to the inferior aspect of the incision, and the fascia was dissected away from the underlying muscle in similar fashion. The rectus abdominis muscles were then spread manually. The peritoneum was entered manually. Excellent visualization of the uterus was noted. A lower transverse uterine incision was then made with a #10 blade. Upon arriving at the intrauterine cavity, the uterine incision was then extended manually. The was noted to be in a transverse position. The baby was delivered without difficulty. After delivery of the head, the mouth and nose were suctioned at the site of the incision. There was no meconium. There was no nuchal cord. The remainder of the body was then delivered and placed on the abdomen. The cord was cut and clamped. The baby was then handed to the waiting nurse. The placenta was removed intact. The uterus was externalized. The intrauterine cavity was cleansed of any remaining debris. The uterine incision was reapproximated in 2 layers. The first layer was performed with 0 Vicryl in a running locked stitch. The second layer was an imbricating stitch also using 0 Vicryl. The uterus was replaced into the abdomen. The peritoneum was then irrigated with warm saline. I reexamined the uterine incision and found it to be hemostatic. The rectus abdominis muscles were then reapproximated using 0 Vicryl in a running stitch. The fascia was then reapproximated using 0 Vicryl in running stitch. The subcutaneous tissue was reapproximated using 0 Vicryl in running stitch. The skin was reapproximated using 4-0 Vicryl in a running subcuticular stitch. Steri-Strips were placed. A sterile dressing was placed. All counts were correct x2. Both the mother and baby were in stable condition.
[2022-01-16] MEDS: ketorolac 30 mg/mL INJ IVP ×2 (14:31→21:18)
--- NOTE | 2022-01-16 15:31 | ANE.PACU2 ---
Inpatient post-anesthesia follow up: Airway intact: Yes Vital signs: Temperature 97.9 F Pulse Rate 67 Respiratory Rate 18 Blood Pressure 109/67 Pulse Oximetry 99 Oxygen Delivery Me thod Room Air Oxygen Flow Rate Fraction of Inspir ed Oxygen Hydration adequate: Yes Nausea and vomiting: No Pain level: 1 Mental status: Baseline
[2022-01-16] MEDS: ferrous sulfate EC 325 mg Tablet PO (21:18)
[2022-01-16] MEDS: docusate sodium 100 mg Capsule PO (21:18)
[2022-01-16 23:27] LABS: Mean Corpuscular HGB Conc 33.3 g/dL (30.0-36.0); Mean Corpuscular Hemoglobin 31.7 pg (28.0-34.0); Mean Corpuscular Volume 95.1 fl (81-99); Mean Platelet Volume 12.1 fL (7.4-10.4); Platelet Count 135 10^3/cmm (130-400); Red Blood Count 3.47 10^6/uL (4.1-5.3); Red Cell Distribution Width 13.8 % (12.1-15.1); White Blood Count 15.5 10^3/uL (4.0-10.0)
[2022-01-17 02:45] VITALS: BP 96/56; PULSE 81; RESP 18; TEMP 36.6; O2SAT 97
--- NOTE | 2022-01-17 06:51 | PM.OBGYDC ---
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 Date of Admission: 01/16/22 05:11 Date of Discharge: 01/17/22 Attending Provider at Admission: Mynor Hannah MD Attending Provider at Discharge: Mynor Hannah MD Diagnoses at Discharge Discharge Diagnosis (1) Breech presentation: Status: Acute (2) Previous delivery affecting , antepartum: Status: Acute (3) Congenital uterine anomaly: Status: Acute (4) 39 weeks gestation of : Status: Acute (5) cardiac arrhythmia: Status: Acute Reason for Visit Reason for Visit: EDC 01/20/22 Hospital Course Hospital Course The patient presented to the hospital for a repeat section due to a history of a previous section and due to breech presentation. Her was unremarkable. Her course was also unremarkable. She was passing flatus on the day of surgery. Her diet was advanced. She tolerated it well. Her pain was well controlled. Her bleeding was within normal limits. There were no concerns. Information Peripartum Data: Infant Delivery Method: Physical Exam Narrative: She is in no acute distress Lungs are clear auscultation bilaterally Her heart has a regular rate and rhythm Her fundus is below the umbilicus and firm Her dressing is clean, dry and intact Her extremities have trace edema Urinary Catheter Management: Ayala: Cath Placed During This Visit: yes, but has since been removed by the nurse Reason for Continuing Indwelling Catheter: Decision to DC Catheter Urinary Catheter Date of Insertion: 01/16/22 Urinary Catheter Time of Insertion: 07:20 Date Urinary Catheter Removed: 01/16/22 Time Urinary Catheter Discontinued: 18:00 History History History 2 Term 1 0 Miscarriages/Ectopic 0 Living Children 1 Discharge Data Studies Completed and Pending Laboratory Results WBC 15.5 10^3/uL (4.0-10.0) H 01/16/22 22:45 RBC 3.47 10^6/uL (4.1-5.3) L 01/16/22 22:45 Hgb 11.0 g/dL (11.5-15.3) L 01/16/22 22:45 Hct 33.0 % (37.0-47.0) L 01/16/22 22:45 MCV 95.1 fl (81-99) 01/16/22 22:45 MCH 31.7 pg (28.0-34.0) 01/16/22 22:45 MCHC 33.3 g/dL (30.0-36.0) 01/16/22 22:45 RDW 13.8 % (12.1-15.1) 01/16/22 22:45 Plt Count 135 10^3/cmm (130-400) 01/16/22 22:45 MPV 12.1 fL (7.4-10.4) H 01/16/22 22:45 Neut % (Auto) 70.4 % 01/16/22 05:45 Lymph % (Auto) 17.5 % 01/16/22 05:45 [place] % (Auto) 10.7 % 01/16/22 05:45 Eos % (Auto) 0.5 % 01/16/22 05:45 Baso % (Auto) 0.3 % 01/16/22 05:45 Neut # (Auto) 7.46 10^3/uL (1.8-7.7) 01/16/22 05:45 Lymph # (Auto) 1.9 10^3/uL (0.8-4.8) 01/16/22 05:45 [place] # (Auto) 1.1 10^3/uL (0.2-0.9) H 01/16/22 05:45 Eos # (Auto) 0.1 10^3/uL (0.0-0.8) 01/16/22 05:45 Baso # (Auto) 0.0 10^3/uL (0.0-0.1) 01/16/22 05:45 Nucleated RBC % (auto) 0 % 01/16/22 05:45 Nucleated RBCs # 0.0 /100WBC 01/16/22 05:45 Vitals Last Vital Signs Temp 97.8 F 01/17/22 02:45 Pulse 81 01/17/22 02:45 Resp 18 01/17/22 02:45 BP 96/56 01/17/22 02:45 Pulse Ox 97 01/17/22 02:45 O2 Del Method 01/17/22 02:45 Discharge Plan Discharge Patient Disposition: Home Condition: Stable Prescriptions: New ibuprofen 800 mg Tablet 800 mg PO TID Qty: 45 0RF Continued prenat.vits,jeana,lwn-baqy-llepr Tablet 1 tab PO DAILY No Action (DME) breast pump [Baby Buddha Breast Pump] Device See Rx Instructions .Route Qty: 1 0RF Rx Instructions: As directed Discharge Orders: Discharge Order (Routine); Ordered 01/17/22 Ordered By: Mynor Hannah Referrals: Mynor Hannah MD [Physician] - (Already has appointment set up for next week.) Discharge Diet: Usual diet Discharge Activity: Limit activity as instructed Patient Instructions: Opioid Safety Discharge 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
[2022-01-17] MEDS: ferrous sulfate EC 325 mg Tablet PO (09:20)
[2022-01-17] MEDS: ibuprofen 800 mg tablet PO (09:20)
[2022-01-17] MEDS: prenatal vitamin Capsule 1 CAP PO (09:20)
[2022-01-17] MEDS: docusate sodium 100 mg Capsule PO (09:20)
[2022-01-17] MEDS: acetaminophen 325 mg Tablet 650 MG PO (09:22)
[2022-01-17 12:30] VITALS: BP 114/69; PULSE 83; RESP 18; O2SAT 99
== END 2022-01-17 12:45 | disposition home or self-care (01) | DRG 788 ==
PROVIDERS: Admitting Provider Family Medicine; Visit Provider Family Medicine
PROC: 10D00Z1 Extraction of Products of Conception, Low, Open Approach (ICD-10-PCS; CPT 59514; principal; 2022-01-16 07:00)
DX: O32.1XX0 Maternal care for breech presentation, not applicable or unspecified (principal); O34.219 Maternal care for unspecified type scar from previous cesarean delivery; O34.03 Maternal care for unspecified congenital malformation of uterus, third trimester; Q51.3 Bicornate uterus; Z3A.39 39 weeks gestation of pregnancy; Z37.0 Single live birth
CPT/HCPCS: 12345; 36415; 51702; 59025; 59409; 85025; 85027; 96374; J1200; J1885; J2274; J2405; J2765; J3010; J3490

== ENCOUNTER → 2024-06-10 10:29 | Outpatient (BNVA) | payer OTHER, SELFPAY | PROVIDERS: Visit Provider Nurse Practitioner Women's Health | DX: Z01.419 Encounter for gynecological examination (general) (routine) without abnormal findings; Z80.0 Family history of malignant neoplasm of digestive organs | CPT/HCPCS: 80053; 82306; 82465; 83036; 83718; 83721; 84443; 85025; 87624 ==

== ENCOUNTER 2024-06-29 09:11 | Outpatient (CLI) | payer OTHER, SELFPAY ==
[2024-06-29 16:06] LABS: Ferritin 9 ng/mL (15-150); Iron 23 ug/dL (37-145); Percent Saturation 5.6 % (20-50); Total Iron Binding Capacity 410 mcg/dl; Unsaturated Iron Binding 387 ug/dL (112-347)
[2024-06-29 16:20] LABS: Vitamin B12 591 pg/mL (232-1245)
[2024-06-29 16:24] LABS: Folate Level 13.3 ng/mL (4.8-37.3)
== END 2024-06-29 09:12 | disposition home or self-care (01) ==
PROVIDERS: Visit Provider Nurse Practitioner Women's Health
DX: D64.9 Anemia, unspecified (principal)
CPT/HCPCS: 36415; 82607; 82728; 82746; 83540; 83550